=== PATIENT | male | born 1965 | race Caucasian/White ===

== ENCOUNTER → 2019-04-13 | Outpatient (CLI) | payer OTHER ==
[~2019-04-13] MED LIST: ACETAMINOPHEN-H1 TA2 PO; AMOX/CLAV POT 81 TAB PO; Augmentin Xr 101 TER PO; PRAVACHOL40 MG PO; TRAMADOL HCL50 MG PO
== END | disposition home or self-care (01) ==
LOC: US 07:28
DX: K76.0 Fatty (change of) liver, not elsewhere classified (principal); R74.0 Nonspecific elevation of levels of transaminase and lactic acid dehydrogenase [LDH]